=== PATIENT | female | born 2000 | race Caucasian/White ===

== ENCOUNTER 2022-01-08 13:02 | Emergency (ER) | payer OTHER, SELFPAY ==
--- NOTE | ~2022-01-08 | XR_ITS ---
EXAMINATION: XR CHEST CLINICAL INFORMATION: Shortness of breath. COMPARISON: None TECHNIQUE: Frontal view of the chest was obtained. FINDINGS: No significant abnormality is noted involving the heart, lungs, mediastinum, bony thorax or soft tissues. XR/XR chest 1V IMPRESSION: No acute cardiopulmonary process.
[2022-01-08 14:10] VITALS: BP 140/82; PULSE 89; RESP 20; TEMP 36.6; O2SAT 100; BMI 23.3
--- NOTE | 2022-01-08 14:10 | ED.SOB ---
HPI - SOB/Dyspnea General Chief Complaint: Dyspnea Stated Complaint: SOB sent by PCP Time Seen by Provider: 01/08/22 14:10 Related Data Allergies Allergy/AdvReac Type Severity Reaction Status Date / Time nickel Allergy Hives Verified 01/08/22 14:15 Penicillins Allergy Unknown Verified 01/08/22 14:15 Physical Exam Vital Signs: Vital Signs: Last Vital Signs Temp 97.8 F 01/08/22 14:10 Pulse 89 01/08/22 14:10 Resp 20 01/08/22 14:10 BP 140/82 H 01/08/22 14:10 Pulse Ox 100 01/08/22 14:10 O2 Del Method 01/08/22 14:10 BMI result Body Mass Index 23.3 Course Course Course Narrative: Patient is a young 21-year-old female with no significant past medical history had COVID 2 months ago which lasted for a few days patient already been vaccinated in the past started noticing shortness of breath it is after COVID. No cough no fever no leg swelling feels lung tight patient is not on any control pills no family history of blood clots On examination vital stable saturating 100% on room air Lungs clear to auscultation Heart S1-S2 regular rate and rhythm no murmur rub or gallop Legs no edema no calf tenderness Impression exertional shortness of breath etiology not clear we will do basic workup including CBC, D-dimer troponin Patient will be seen in the main ED for further evaluation Discharge Plan Discharge Clinical Impression: Shortness of breath
[2022-01-08 14:24] LABS: MANUAL DIFF FLAG NO
[2022-01-08 14:26] LABS: Basophils Percent Auto 0.6 % (0-2); Eosinophils Absolute Auto 0.1 X10*3/uL (0.0-0.4); Eosinophils Percent Auto 1.8 % (0-4); Hematocrit 38.6 % (37.0-47.0); Hemoglobin 12.6 g/dl (12.0-16.0); Imm Gran Abs Auto 0.01 X10*3/uL (0.00-0.03); Imm Gran Pct Auto 0.2 % (0.0-0.4); Lymphocytes Absolute Auto 2.1 X10*3/uL (1.2-4.9); Mean Corpuscular HGB Conc 32.6 g/dl (31.0-35.0); Mean Corpuscular Hemoglobin 29.1 pg (27.0-33.0); Mean Corpuscular Volume 89.1 fL (80.0-98.0); Mean Platelet Volume 10.8 fL (9.4-12.3); Monocytes Absolute Auto 0.5 X10*3/uL (0.1-1.2); Monocytes Percent Auto 7.6 % (2-11); Neutrophils Absolute Auto 3.6 x10*3/uL (2.0-8.3); Neutrophils Percent Auto 56.8 % (45-73); Platelet Count 271 X10*3/uL (160-400); Red Blood Count 4.33 X10*6/uL (4.20-5.50); Red Cell Distribution Width 11.6 % (11.0-16.0); White Blood Count 6.3 X10*3/uL (4.8-10.8)
[2022-01-08 14:51] LABS: Anion Gap 12 (12-20); Blood Urea Nitrogen 12 mg/dL (9-16); Calcium 9.7 mg/dL (8.4-10.2); Carbon Dioxide 27 mmol/L (22-29); Chloride 107 mmol/L (96-108); Creatinine Clr Calc Pharmacy 111.8; Estimated Glomerular Filt Rate > 60; Glucose Random 98 mg/dL (60-115); Potassium 4.8 mmol/L (3.3-5.1); Sodium 141 mmol/L (135-145)
[2022-01-08 14:57] LABS: D Dimer High Sensitivity < 150 NG/ML; Troponin-I High Sensitivity < 3.5 ng/L (<3.5-17.0)
--- NOTE | 2022-01-08 20:40 | ED_ITS ---
HPI - SOB/Dyspnea General Chief Complaint: Dyspnea Stated Complaint: SOB sent by PCP Time Seen by Provider: 01/08/22 14:10 Source: patient Mode of arrival: ambulatory Limitations: no limitations History of Present Illness HPI Narrative: 21-year-old female previously healthy here with complaints of shortness with ex ertion for the last 2 months after having COVID. Patient reports about 6 days of sore throat, body aches, loss of taste and smell when she had COVID. Shortness of breath developed around day 8. No associated chest pain or cough or fever with this. Followed up with her primary care doctor and started on albuterol 3 times daily. Patient reports she also had spirometry testing and PFTs which were normal. She followed back up with zoom call with her primary care was referred into the emergency room to rule out pulmonary embolism. Related Data Allergies Allergy/AdvReac Type Severity Reaction Status Date / Time nickel Allergy Hives Verified 01/08/22 14:15 Penicillins Allergy Unknown Verified 01/08/22 14:15 Review of Systems Review of Systems: Yes all other systems are reviewed and are negative Constitutional: Constitutional: Reports no additional constitutional complaints, Denies body ache(s), Denies chills, Denies fever(s), Denies headache(s) and Denies weakness Eyes: Eyes: Reports no additional eye complaints and Denies change in vision ENT: Reports system reviewed and no additional complaints, except as documented, Denies dizziness, Denies headache(s), Denies nasal congestion, Denies nasal discharge and Denies neck pain Cardiovascular: Cardiovascular: Reports no additional cardiovascular complaints, Denies chest pain, Denies leg edema and Reports dyspnea Respiratory: Respiratory: Reports no additional respiratory complaints, Denies cough and Reports dyspnea Gastrointestinal: Gastrointestinal: Reports no additional gastrointestinal complaints, Denies abdominal pain, Denies diarrhea, Denies nausea and Denies vomiting Genitourinary: Genitourinary: Reports no additional female genitourinary complaints and Denies urinary incontinence Musculoskeletal: Musculoskeletal: Reports no additional musculoskeletal complaints, Denies back pain, Denies arthralgias, Denies joint swelling, Denies neck pain, Denies numbness and Denies tingling Integumentary/Breasts: Skin/Breast: Reports system reviewed and no additional complaints, except as docu and Denies rash Neurologic: Reports system reviewed and no additional complaints, except as documented, Denies Abnormal speech present, Denies dizziness, Denies headache(s), Denies numbness, Denies tingling and Denies weakness PMFSH Past Medical History Attestation statement: The following information was validated with the patient. Source: old records reviewed and nursing notes reviewed Social History Social History Advance Directives: No Advance Directives Information Provided: Yes Physical Exam Vital Signs: Vital Signs: Last Vital Signs Temp 97.8 F 01/08/22 14:10 Pulse 89 01/08/22 14:10 Resp 20 01/08/22 14:10 BP 140/82 H 01/08/22 14:10 Pulse Ox 100 01/08/22 14:10 O2 Del Method 01/08/22 14:10 BMI result Body Mass Index 23.3 Const: General: cooperative, healthy appearing, comfortable and no acute distress Orientation/consciousness: patient oriented x3 Limitations: no limitations HEENT: Head: Yes normal to inspection Ears: hearing grossly normal bilaterally General nose exam: Normal external nose present Face and sinus: Yes normal facial exam Mouth: Normal oral and palatal mucosa present Throat: Yes posterior oropharynx normal Eyes: General: appearance normal, both eyes and all related structures Pupils: Equal, round and reactive pupils present Neck: Neck: Yes normal visual inspection Chest: Chest palpation & inspection: normal inspection of the chest Resp: Effort & Inspection: normal respiratory effort Auscultation: clear to auscultation bilaterally Cardio: Rate: regular rate Rhythm: regular rhythm Peripheral pulses: Peripheral pulses 2+ throughout GI: Inspection: Yes normal to inspection Palpation (GI): Soft to palpation and nontender Auscultation: normal bowel sounds Back/Spine/Pelvis: Thoracic/Lumbar Spine: thoracic and lumbar spine normal to inspection Skin: General skin exam: no rashes or lesions noted Neuro: General: patient oriented x3, no focal motor deficits and normal sensation to monofilament Cranial nerves: Yes Equal, round and reactive pupils present Cognition (Neuro): normal cognition Speech: No Abnormal speech present Gait exam (Neuro): Normal gait present Motor exam (neuro): 5/5 motor strength present throughout Extrem: General: Yes normal to inspection, Yes no pedal edema and Yes no calf tenderness Course Course Course Narrative: Labs are unremarkable. Chest x-ray shows no acute finding. EKG is negative for any ischemic changes. D-dimer is negative so low concern for PE with no hypoxia, tachypnea, tachycardia, clinical findings concerning for DVT. Low concern for ACS with negative troponin and EKG. Did consider myocarditis however normal troponin, patient now 2 months of symptoms so less likely. Consider long-haul COVID. Patient should continue to follow-up with her primary care doctor. Reviewed worrisome signs/symptoms with patient and when to seek additional care. Comfortable with discharge home. MDM - SOB/Dyspnea MDM Narrative Medical decision making narrative: 21-year-old female here with 2 months of shortness of breath post COVID. Vitals are stable Lungs are clear Sent in by primary to rule out pulmonary embolism No tachypnea or hypoxia or tachycardia. No clinical findings concerning for DVT. Will check chest x-ray, labs, EKG Consider myocarditis, pulmonary embolism, pneumonia Medical Records Attestation: I reviewed the patient's medical records. Lab Data Attestation: I reviewed the patient's lab results. Result diagrams: 01/08/22 14:19 01/08/22 14:19 Labs: Lab Results 01/08/22 01/08/22 01/08/22 Range/Units 14:19 14:19 14:19 WBC 6.3 (4.8-10.8) X10*3/uL RBC 4.33 (4.20-5.50) X10*6/uL Hgb 12.6 (12.0-16.0) g/dl Hct 38.6 (37.0-47.0) % MCV 89.1 (80.0-98.0) fL MCH 29.1 (27.0-33.0) pg MCHC 32.6 (31.0-35.0) g/dl RDW 11.6 (11.0-16.0) % Plt Count 271 (160-400) X10*3/uL MPV 10.8 (9.4-12.3) fL Immature Gran % (Auto) 0.2 (0.0-0.4) % Neut % (Auto) 56.8 (45-73) % Lymph % (Auto) 33.0 (20-40) % [place] % (Auto) 7.6 (2-11) % Eos % (Auto) 1.8 (0-4) % Baso % (Auto) 0.6 (0-2) % Lymph # (Auto) 2.1 (1.2-4.9) X10*3/uL [place] # (Auto) 0.5 (0.1-1.2) X10*3/uL Eos # (Auto) 0.1 (0.0-0.4) X10*3/uL Baso # (Auto) 0.0 (0.0-0.2) X10*3/uL Abs Immat Gran (auto) 0.01 (0.00-0.03) X10*3/uL Absolute Neuts (auto) 3.6 (2.0-8.3) x10*3/uL Absolute Nucleated RBC 0.000 (0.0-0.012) X10*3/uL Nucleated RBC % (auto) 0.0 (0.0-0.2) /100WBC D-Dimer High Sensitivty < 150 NG/ML Sodium 141 (135-145) mmol/L Potassium 4.8 (3.3-5.1) mmol/L Chloride 107 (96-108) mmol/L Carbon Dioxide 27 (22-29) mmol/L Anion Gap 12 (12-20) BUN 12 (9-16) mg/dL Creatinine 0.71 (0.5-1.4) mg/dL Estim Creat Clear Calc 111.8 Estimated GFR > 60 Random Glucose 98 (60-115) mg/dL Calcium 9.7 (8.4-10.2) mg/dL Troponin I High Sens (<3.5-17.0) ng/L 01/08/22 Range/Units 14:19 WBC (4.8-10.8) X10*3/uL RBC (4.20-5.50) X10*6/uL Hgb (12.0-16.0) g/dl Hct (37.0-47.0) % MCV (80.0-98.0) fL MCH (27.0-33.0) pg MCHC (31.0-35.0) g/dl RDW (11.0-16.0) % Plt Count (160-400) X10*3/uL MPV (9.4-12.3) fL Immature Gran % (Auto) (0.0-0.4) % Neut % (Auto) (45-73) % Lymph % (Auto) (20-40) % [place] % (Auto) (2-11) % Eos % (Auto) (0-4) % Baso % (Auto) (0-2) % Lymph # (Auto) (1.2-4.9) X10*3/uL [place] # (Auto) (0.1-1.2) X10*3/uL Eos # (Auto) (0.0-0.4) X10*3/uL Baso # (Auto) (0.0-0.2) X10*3/uL Abs Immat Gran (auto) (0.00-0.03) X10*3/uL Absolute Neuts (auto) (2.0-8.3) x10*3/uL Absolute Nucleated RBC (0.0-0.012) X10*3/uL Nucleated RBC % (auto) (0.0-0.2) /100WBC D-Dimer High Sensitivty NG/ML Sodium (135-145) mmol/L Potassium (3.3-5.1) mmol/L Chloride (96-108) mmol/L Carbon Dioxide (22-29) mmol/L Anion Gap (12-20) BUN (9-16) mg/dL Creatinine (0.5-1.4) mg/dL Estim Creat Clear Calc Estimated GFR Random Glucose (60-115) mg/dL Calcium (8.4-10.2) mg/dL Troponin I High Sens < 3.5 (<3.5-17.0) ng/L Imaging Data Chest x-ray: Attestation: I personally reviewed and interpreted this imaging study as f ollows: Radiologist's impression: [address] [address] XRay Report Signed Patient: Rachael Sanders MR#: [id number] : 2000 Acct:[id number] Age/Sex: 21 / F ADM Date: 01/08/22 Loc: .ED Attending Dr: Ordering Physician: Evaristo Mauro MD Date of Service: 01/08/22 Procedure(s): XR chest 1V Accession Number(s): [id number] cc: Evaristo Mauro MD~ EXAMINATION: XR CHEST CLINICAL INFORMATION: Shortness of breath. COMPARISON: None TECHNIQUE: Frontal view of the chest was obtained. FINDINGS: No significant abnormality is noted involving the heart, lungs, mediastinum, bony thorax or soft tissues. XR/XR chest 1V IMPRESSION: No acute cardiopulmonary process. ? ECG Data Attestation: I personally reviewed and interpreted this ECG as follows: ECG interpretation date: 01/08/22 ECG interpretation time: 21:25 Interpretation: Normal sinus rhythm with rate 83, normal AL, normal QRS, normal QT Discharge Plan Discharge Clinical Impression: Shortness of breath Patient Disposition: Home, Self-Care Instructions: Shortness of Breath (ED) Additional Instructions: Your blood work is reassuring. We did a blood test which was negative for blood clot. Your chest x-ray shows no signs of pneumonia. Her EKG looks good. Please continue to follow back up with her primary care and [facility] Referrals: Physician,Nolan J [Physician] - Interventions: ED Discharge Assessment Last Done: 01/08/22 22:05 Discharge Date/Time: 01/08/22 22:06
--- NOTE | 2022-01-08 20:46 | ECG_ITS ---
Test Reason : SOB Blood Pressure : / mmHG Vent. Rate : 083 BPM Atrial Rate : 083 BPM P-R Int : 142 ms QRS Dur : 082 ms QT Int : 382 ms P-R-T Axes : 067 047 021 degrees QTc Int : 448 ms Sinus rhythm with marked sinus arrhythmia Otherwise normal ECG No previous ECGs available Referred By: Larissa Rowley Electronically Signed By:JOSE RAUL IZAGUIRRE MD
== END 2022-01-08 22:06 | disposition home or self-care (01) ==
PROVIDERS: Emergency Provider Internal Medicine; PCP Nurse Practitioner Family
DX: R06.02 Shortness of breath (principal)
CPT/HCPCS: 36415; 71045; 80048; 84484; 85025; 85379; 93005; 99282; 99283

== ENCOUNTER 2022-05-03 06:08 | Emergency (ER) | payer OTHER, SELFPAY ==
[2022-05-03 06:23] VITALS: BP 117/76; BP 130/90; PULSE 80; PULSE 97; RESP 17; TEMP 37.2; O2SAT 98; BMI 24.1
[2022-05-03 08:12] VITALS: BP 115/70; PULSE 86; RESP 16; TEMP 36.9; O2SAT 98
--- NOTE | 2022-05-03 08:51 | ED_ITS ---
HPI - Dizziness General Chief Complaint: Dizziness Stated Complaint: vertigo/nausea/vomiting Time Seen by Provider: 05/03/22 08:05 Source: patient Mode of arrival: EMS Limitations: no limitations History of Present Illness HPI Narrative: 21-year-old female who presents emergency department for evaluation of sudden onset of room spinning dizziness that occurred at 02:00 hours. Patient states that if she moves her head the dizziness gets worse. Patient has had associated nausea with no vomiting. She also states she is feeling anxious. Patient states that she is just getting over a cold. She started with a sore throat on Friday (1 week prior), nasal congestion and a nonproductive cough. She states that her symptoms have almost resolved. The patient states she has had episodes of vertigo in the past but never vertigo this lasted this long and she does not take any medications. She denies history of anxiety or treatment for anxiety. Related Data Previous Rx's Medication Instructions Recorded meclizine 25 mg tablet (Dramamine 25 mg PO TID PRN dizziness #20 tabs 05/03/22 Less Drowsy) ondansetron 4 mg disintegrating 4 mg PO Q6-8H PRN nausea and 05/03/22 tablet vomiting #14 tabs Allergies Allergy/AdvReac Type Severity Reaction Status Date / Time nickel Allergy Hives Verified 01/08/22 14:15 Penicillins Allergy Unknown Verified 01/08/22 14:15 Review of Systems Review of Systems: Yes all other systems are reviewed and are negative [facility] Past Medical History [facility] Narrative: Past medical history: The patient states she had a COVID-19 infection in November of 2021 and since then has had wheezing/asthma. Social history: [place] teeth extraction. Social history: She is a student at [employer]. She denies tobacco, alcohol and drug use. Social History Social History Alcohol intake: never Smoked in Last 30 Days: No Use of substances other than those prescribed or required for medical reasons: No Advance Directives: No Advance Directives Information Provided: Yes Patient : No Physical Exam Vital Signs: Vital Signs: Last Vital Signs Temp 98.5 F 05/03/22 08:12 Pulse 86 05/03/22 08:12 Resp 16 05/03/22 08:12 BP 115/70 05/03/22 08:12 Pulse Ox 98 05/03/22 08:12 O2 Del Method 05/03/22 08:12 BMI result Body Mass Index 24.1 Const: Other: Awake, alert, female patient, she is sitting upright in the stretcher, she does not appear to be in distress, she answers all questions appropriately Orientation/consciousness: oriented to person and oriented to place HEENT: Head: Yes normal to inspection, Yes normocephalic and Yes atraumatic Ears: external ears normal General nose exam: Normal external nose present Face and sinus: Yes normal facial exam Mouth: Normal oral and palatal mucosa present Throat: Yes posterior oropharynx normal Eyes: Alignment and Position: alignment normal and position normal Periorbital: periorbital findings normal Eyelids: Yes eyelids normal Conjunctivae: conjunctivae normal Sclerae: sclerae normal Corneas: corneas normal Pupils: Equal, round and reactive pupils present EOM: EOMs intact bilaterally and Nystagmus present Neck: Neck: Yes normal visual inspection, Yes no lymphadenopathy, Yes trachea midline and Yes supple Chest: Chest palpation & inspection: normal inspection of the chest and normal palpation of entire chest wall Resp: Effort & Inspection: normal respiratory effort and able to speak in complete sentences Auscultation: clear to auscultation bilaterally Cardio: Rate: regular rate Rhythm: regular rhythm Heart sounds: S1 normal heart sound present, S2 normal heart sound present and no murmurs GI: Inspection: Yes normal to inspection Palpation (GI): Soft to palpation, nontender and no guarding Auscultation: normal bowel sounds : General: Yes no CVA tenderness Back/Spine/Pelvis: Back: no CVA tenderness Skin: General skin exam: no rashes or lesions noted Neuro: Other: Inducible vertigo with position change. General: oriented to person and oriented to place Cranial nerves: Yes CN's II-XII intact bilaterally, Yes Equal, round and reactive pupils present and Yes Nystagmus present Cognition (Neuro): normal cognition Motor exam (neuro): 5/5 motor strength present throughout Extrem: General: Yes normal to inspection Psych: Appearance: grossly normal Speech and movement: Normal speech and movement present Affect: normal affect Medical Decision Making Medical Decision Making MDM Narrative: 21-year-old female who presents emergency department for evaluation of sudden onset of dizziness that occurred at 02:00 hours, patient describes the dizziness as a room spinning sensation which is worse with position change in head movement. Vital signs were normal. Examination did reveal nonfocal neurologic exam, nystagmus and inducible vertigo with position change. The patient was treated with meclizine 25 mg orally and Zofran ODT 4 mg. I did discuss positional vertigo with the patient. The patient was given a prescription for meclizine and Zofran. She was given printed and verbal instructions and discharged home. Differential Diagnosis Differential diagnosis includes was not limited to positional vertigo, cerebellar stroke, dehydration, anxiety Discharge Plan Discharge Clinical Impression: Benign paroxysmal positional vertigo Patient Disposition: Home, Self-Care Instructions: Benign Paroxysmal Positional Vertigo (ED) Additional Instructions: Your presentation and symptoms are consistent with positional vertigo, most likely triggered by your cold. Take Zofran ODT 4 mg pills, 1 pill dissolved in your mouth every 8 hours as needed for nausea and vomiting. Take meclizine 25 mg pills, 1 pill 3 times a day for the next 3 days for dizziness then as needed for dizziness. This medication will make you sleepy. Do not drive or work while taking this medication. Follow-up with your doctor in 2 days. Please return to the emergency department if your symptoms get worse or if you develop any symptoms that are concerning to you. Prescriptions: New meclizine [Dramamine Less Drowsy] 25 mg tablet 25 mg PO TID PRN (Reason: dizziness) Qty: 20 0RF ondansetron 4 mg tablet,disintegrating 4 mg PO Q6-8H PRN (Reason: nausea and vomiting) Qty: 14 0RF
[2022-05-03] MEDS: Ondansetron ODT 4 MG TAB.RAPDIS TRANSLINGU (09:12)
[2022-05-03] MEDS: Meclizine HCl 25 MG TABLET PO (09:12)
[2022-05-03 09:24] VITALS: BP 114/73; PULSE 89; RESP 16; TEMP 36.6; O2SAT 98
== END 2022-05-03 09:26 | disposition home or self-care (01) ==
PROVIDERS: Emergency Provider Emergency Medicine Emergency Medical Services
DX: H81.13 Benign paroxysmal vertigo, bilateral (principal)
CPT/HCPCS: 99283; 99284